=== PATIENT | female | born 1995 | race Two or more races ===

== ENCOUNTER 2021-04-03 19:57 | Emergency (ER) | payer SELFPAY ==
--- NOTE | 2021-04-03 21:54 | CR ---
INDICATION: Dropped a weight on foot OS gin. TECHNIQUE: Three views of the right foot. COMPARISON: None. FINDINGS: There is soft tissue swelling along the dorsum of foot but no evidence of acute fracture or malalignment. Joint spaces preserved. IMPRESSION: No acute fracture. Dictated by Renetta Ortiz MD @ 04/03/2021 9:52:23 PM (Electronically Signed)
[2021-04-03] MEDS ORDERED: Ketorolac 15 MG/ML SDV IM ONE (22:17)
--- NOTE | 2021-04-03 22:20 | EDM.PDOC ---
ED HPI GENERAL MEDICAL PROBLEM - General Chief Complaint: Lower Extremity Injury/Pain Stated Complaint: DROPPED A WEIGHT ON RIGHT FOOT, CANT MOVE HER TOES Time Seen by Provider: 04/03/21 21:49 - History of Present Illness INITIAL COMMENTS - FREE TEXT/NARRATIVE: CHIEF COMPLAINT(S): Foot pain HISTORY OF PRESENT ILLNESS: This is a 26-year-old woman without any significant past medical history who comes to the emergency department with a chief complaint of foot pain. The patient states that earlier this morning she was at the gym when she dropped a weight onto her right foot. She states that she started to experience pain and swelling in her right foot and at work she noticed that she can move her toes because of the pain. She states that currently her pain is 5 out of 10 when she is sitting and 8-1/2 out of 10 when s he is standing. She describes the pain as throbbing and sharp. She states that she is able to bear weight however movement does exacerbate the pain. She denies any current numbness, tingling or weakness. She has not yet tried any pain medication. She denies any relieving factors. REVIEW OF SYSTEMS: Constitutional: Denies fever, chills. Eyes: Denies eye pain Ears, Nose, Mouth, & Throat: Denies earache Cardiovascular: Denies chest pain Respiratory: Denies shortness of breath Gastrointestinal: Denies Nausea, vomiting, diarrhea, hematochezia. Genitourinary: Denies hematuria Skin:Denies a rash MSK: Positive for right foot pain and swelling Neurological: Denies blurred vision, numbness, tingling, weakness Psychiatric: Denies depression PAST MEDICAL HISTORY: As per history of present illness and as reviewed below otherwise noncontributory. SURGICAL HISTORY: As per history of present illness and as reviewed below otherwise noncontributory. SOCIAL HISTORY: As per history of present illness and as reviewed below otherwise noncontributory. FAMILY HISTORY: As per history of present illness and as reviewed below otherwise noncontributory. EXAMINATION OF ORGAN SYSTEMS/BODY AREAS: Constitutional: Blood pressure is 123/80, heart rate 65, respiratory rate 17 with an oxygen saturation of 99% on room air. Temperature 37.1 General: Well-appearing woman who is in no acute distress Psychiatric: Appropriate mood and affect. Eyes: No scleral icterus or conjunctival erythema Cardiovascular: Regular, rate, and rhythm. No gallops, murmurs, or rubs. Bilateral upper extremity and lower extremity pulses symmetric and intact. No peripheral edema. No JVD. Respiratory: Lungs clear to auscultation bilaterally. No wheezes, rales, or rhonchi. Musculoskeletal: Patient has full range of motion at the right ankle and is able to wiggle her toes on her right foot. There is no significant deformity. There is tenderness to palpation along the top of the foot on the right side. No medial or lateral malleolar tenderness. No base of the fifth metatarsal tenderness. Skin: No lesions or abrasions. Neurological: Alert, GCS 15 distal sensation is intact MEDICAL DECISION MAKING AND COURSE IN THE ED WITH INTERPRETATION/REVIEW OF DIAGNOSTIC STUDIES: This is a 26-year-old woman without any significant past medical history who comes to the emergency department with acute injury to her right foot without any significant deformity who has tenderness on the top of her right foot. At this time we will obtain an x-ray to evaluate for any fracture. We will provide the patient with Toradol for pain relief. I do not believe any further work-up or imaging is indicated. The radiological images were viewed by myself along with reading the report from the radiologist. Right foot x-ray does not reveal any acute fracture or dislocation. After imaging I did discuss result with the patient. At this time the patient was able to ambulate without any difficulty. I did discuss symptomatic treatment at home. She was given strict return precautions and was amenable discharge at this time. She had no further questions. DISPOSITION: The patient was discharged home in stable condition. The patient will follow up with podiatry as needed CONDITION: Fair PROCEDURES: None FINAL IMPRESSION(S)/DIAGNOSES: 1. Acute right foot injury/pain Vasiliy Jacobs M.D. Right Feet Pain Score (Numeric/FACES): 5 - Related Data Allergies Allergy/AdvReac Type Severity Reaction Status Date / Time No Known Allergies Allergy Verified 04/03/21 20:27 Home Meds: Home Meds . [No Known Home Meds] 04/03/21 [History] Past Medical History - Past Health History Medical/Surgical History: Denies Medical/Surgical History - Infectious Disease History Infectious Disease History: Reports: Chicken Pox Social & Family History - Family History Family Medical History: No Pertinent Family History - Caffeine Use Caffeine Use: Reports: None Review of Systems - Review of Systems Review Of Systems: See Below ED EXAM, GENERAL - Physical Exam Exam: See Below Course - Vital Signs Last Recorded V/S: Last Vital Signs Temp 37.1 C 04/03/21 20:28 Pulse 65 04/03/21 20:28 Resp 17 04/03/21 20:28 BP 123/80 04/03/21 20:28 Pulse Ox 99 04/03/21 20:28 - Orders/Labs/Meds Meds: Medications Discontinued Medications Generic Name Dose Route Start Last Admin Trade Name Nayely PRN Reason Stop Dose Admin Ketorolac Tromethamine 15 mg 04/03/21 22:17 04/03/21 22:25 Ketorolac 15 Mg/Ml Sdv IM 04/03/21 22:18 15 mg ONETIME ONE Administration Departure - Departure Time of Disposition: 22:18 Disposition: Home, Self-Care 01 Condition: Fair Clinical Impression: Foot sprain - Discharge Information *PRESCRIPTION DRUG MONITORING PROGRAM REVIEWED*: No *COPY OF PRESCRIPTION DRUG MONITORING REPORT IN PATIENT RAZA: No Instructions: Foot Sprain Referrals: PCP,None [Primary Care Provider] - Forms: ED Department Discharge Additional Instructions: You were evaluated today on an emergent basis. At this time your imaging did not reveal any fractures. I recommend you use ice, Tylenol and Motrin for pain relief. It is important that you rest the area. If you have any worsening pain or does not improve I would like you to return to the emergency department or follow-up with podiatry. Podiatry Dr. Rangel [phone] Please use: Tylenol 500-1000mg every 6 hours (DO NOT TAKE MORE THAN 4000mg in 1 day) Ibuprofen 400mg every 6 hours (Take with food as it can cause ulcers, GI upset) Example schedule: 8:00 AM (Tylenol 500-1000mg) 11:00 AM (Ibuprofen 400mg) 2:00 PM (Tylenol 500-1000mg) 5:00 PM (Ibuprofen 400mg) In addition to Tylenol and Motrin you may use over the counter creams such as Voltaren Cream or Lidocaine Cream (Lidoderm) as needed 4 times a day for symptomatic relief. Ice the area 20 minutes 4 times per day The patient is informed of any results of their evaluation and diagnostic workup and all questions are answered. They are given discharge instructions and return precautions. The patient is stable for discharge. The patient states they understand and agree with the plan and that they will return if their symptoms get worse or if they have any new concerns. The following information is given to patients seen in the emergency department who are being discharged to home. This information is to outline your options for follow-up care. We provide all patients seen in our emergency department with a follow-up referral. The need for follow-up, as well as the timing and circumstances, are variable depending upon the specifics of your emergency department visit. If you don't have a primary care physician on staff, we will provide you with a referral. We always advise you to contact your personal physician following an emergency department visit to inform them of the circumstance of the visit and for follow-up with them and/or the need for any referrals to a consulting specialist. The emergency department will also refer you to a specialist when appropriate. This referral assures that you have the opportunity for follow-up care with a specialist. All of these measure are taken in an effort to provide you with optimal care, which includes your follow-up. Under all circumstances we always encourage you to contact your private physician who remains a resource for coordinating your care. When calling for follow-up care, please make the office aware that this follow-up is from your recent emergency room visit. If for any reason you are refused follow-up, please contact the [facility] Emergency Department at and asked to speak to the emergency department charge nurse. Sepsis Event Note (ED) - Evaluation Sepsis Screening Result: No Definite Risk
== END 2021-04-03 22:28 | disposition home or self-care (01) ==
LOC: MW.ED 19:57
DX: S93.601A Unspecified sprain of right foot, initial encounter (principal); W20.8XXA Other cause of strike by thrown, projected or falling object, initial encounter
CPT/HCPCS: 73630; 96372; 99283; J1885

== ENCOUNTER 2021-10-15 19:51 | Emergency (ER) | payer OTHER ==
[2021-10-15] MEDS ORDERED: Orphenadrine 60 MG/2 ML Inj IM ONE (20:45)
[2021-10-15] MEDS ORDERED: Ketorolac 60 MG/2 ML SDV IM ONE (20:45)
== END 2021-10-15 22:57 | disposition home or self-care (01) ==
LOC: MW.ED 19:51
DX: S16.1XXA Strain of muscle, fascia and tendon at neck level, initial encounter (principal); Z79.899 Other long term (current) drug therapy; V87.7XXA Person injured in collision between other specified motor vehicles (traffic), initial encounter; Y92.410 Unspecified street and highway as the place of occurrence of the external cause
CPT/HCPCS: 70450; 72125; 96372; 99284; J1885; J2360; 99283